=== PATIENT | female | born 1940 | race Caucasian/White ===

== ENCOUNTER 2019-12-05 15:23 | Inpatient (IN) | payer OTHER ==
[2019-12-05] MEDS ORDERED: FENTANYL CITR 100 MCG/2 ML ONE (17:34)
[2019-12-05 17:41] LABS: Basophils % 0.8 % (0-1.3); Hematocrit 38.7 % (36.0-45.0); Lymphocytes % 20.4 % (15.3-44.8); MPV 9.5 fL (7.6-11.3); RBC Red Blood Cell Count 4.45 M/uL (3.86-4.86)
[2019-12-05 17:49] LABS: Protime INR 0.99
[2019-12-05 17:56] LABS: Potassium 3.5 mmol/L (3.5-5.1)
--- NOTE | 2019-12-05 18:15 | EDPHYS ---
Physician Documentation [facility] Name: Denisse Cook Age: 79 yrs Sex: Female : 1940 Arrival Date: 12/05/2019 Time: 15:30 Bed 17 Private MD: ED Physician Elgin Hamilton HPI: 12/04 15:40 This 79 yrs old Female presents to ER via EMS with complaints of Fall. cp 15:40 Details of fall: The patient fell from an upright position, while standing, and struck cp a tile surface. 15:40 Onset: The symptoms/episode began/occurred 3 day(s) ago. Associated injuries: The cp patient sustained injury to the low back, pain, right hip, painful injury. Historical: - Allergies: 15:44 No Known Allergies; ca1 - Home Meds: 15:44 Amitriptyline Oral [Active]; Metformin Oral [Active]; gabapentin oral oral [Active]; ca1 Lisinopril Oral [Active]; amlodipine oral [Active]; Metoprolol Tartrate Oral [Active]; venlafaxine oral oral [Active]; - PMHx: 15:44 Diabetes - NIDDM; Hypertension; ca1 - PSHx: 15:44 None; ca1 - Immunization history:: Adult Immunizations up to date. - Social history:: Smoking status: Patient denies any tobacco usage or history of. ROS: 15:45 MS/extremity: Positive for pain, tenderness, of the right hip. cp 15:45 Eyes: Negative for injury, pain, redness, and discharge. cp 15:45 Constitutional: Negative for body aches, chills, fever. 15:45 Neck: Negative for pain with movement, pain at rest, stiffness. 15:45 Cardiovascular: Negative for chest pain, palpitations. 15:45 Respiratory: Negative for cough, shortness of breath, wheezing. 15:45 Abdomen/GI: Negative for abdominal pain, nausea, vomiting, and diarrhea, bowel incontinence. 15:45 Back: Positive for pain at rest, pain with movement, of the lumbar area and right low back. 15:45 Neuro: Negative for altered mental status, headache, loss of consciousness, weakness. 15:45 All other systems are negative. Exam: 15:50 Constitutional: The patient appears in no acute distress, alert, awake, cp non-diaphoretic, non-toxic, well developed, well nourished. 15:50 Head/Face: Normocephalic, atraumatic. cp 15:50 Eyes: Periorbital structures: appear normal, Conjunctiva: normal, no exudate, no injection, Lids and lashes: appear normal, bilaterally. 15:50 ENT: External ear(s): are unremarkable, Nose: is normal, Mouth: Lips: moist, Oral mucosa: pink and intact, moist, Posterior pharynx: is normal, airway is patent, no erythema, no exudate. 15:50 Neck: C-spine: vertebral tenderness, is not appreciated, crepitus, is not appreciated, ROM/movement: is normal, is supple, without pain, no range of motions limitations. 15:50 Chest/axilla: Inspection: normal, Palpation: is normal, no crepitus, no tenderness. 15:50 Cardiovascular: Rate: normal, Rhythm: regular, Edema: ankle edema, that is mild, JVD: is not appreciated. 15:50 Respiratory: the patient does not display signs of respiratory distress, Respirations: normal, no use of accessory muscles, no retractions, labored breathing, is not present, Breath sounds: are clear throughout, no decreased breath sounds, no stridor, no wheezing. 15:50 Abdomen/GI: Inspection: abdomen appears normal, Bowel sounds: active, all quadrants, Palpation: abdomen is soft and non-tender, in all quadrants. 15:50 Back: pain, that is moderate, of the lumbar area and right low back, ROM is painful, with all movement, Straight leg raises: right lower extremity illicits pain. 15:50 Musculoskeletal/extremity: Pulses: noted to be 2+ in the right dorsalis pedis artery and left dorsalis pedis artery, Joints: All joints are normal except the right hip displays painful range of motion. 15:50 Skin: no rash present. 15:50 Neuro: Orientation: to person, place \T\ time. Mentation: is normal, Motor: moves all fours, strength is normal. 17:45 ECG was reviewed by the Attending Physician. cp Vital Signs: 15:31 BP 116 / 77; Pulse 95; Resp 18; Temp 98.1; Pulse Ox 94% on R/A; Weight 73.03 kg; Height dh4 5 ft. 3 in. (160.02 cm); 16:36 BP 109 / 82; Pulse 90; Resp 15 S; Pulse Ox 96% on R/A; ca1 17:30 BP 140 / 88; Pulse 87; Resp 15 S; Pulse Ox 92% on R/A; ca1 18:32 BP 130 / 79; Pulse 86; Resp 15 S; Pulse Ox 96% on R/A; ca1 20:37 BP 118 / 63; Pulse 73; Resp 18; Temp 98; Pulse Ox 96% on R/A; mg2 15:31 Body Mass Index 28.52 (73.03 kg, 160.02 cm) 4 MDM: 15:34 Patient medically screened. cp 18:12 Physician consultation: Darius Coronado MD was called at 18:12, was contacted at 18:12, regarding admission, to the medical/surgical unit. patient's condition. 18:15 Data reviewed: vital signs, nurses notes, lab test result(s), radiologic studies, plain cp films. 18:15 Test interpretation: by ED physician or midlevel provider: xrays of pelvis show right cp superior and inferior rami fractures, xrays of right hip negative for fracture. Counseling: I had a detailed discussion with the patient and/or guardian regarding: the historical points, exam findings, and any diagnostic results supporting the discharge/admit diagnosis, radiology results, the need for further work-up and treatment in the hospital. 12/04 16:53 Order name: CBC with Diff; Complete Time: 18:11 cp 12/04 16:53 Order name: BMP; Complete Time: 18:11 cp 12/04 18:11 Interpretation: Normal except: GLUC 193; BUN 19; GFR 86. cp 12/04 16:53 Order name: PT-INR; Complete Time: 18:11 cp 12/04 16:53 Order name: Ptt, Activated; Complete Time: 18:11 cp 12/04 16:53 Order name: Urine Microscopic Only; Complete Time: 19:10 cp 12/04 19:10 Interpretation: Normal except: UWBC 10-20; UBACT 20-50. cp 12/04 18:18 Order name: Urine Culture EDMS 12/04 15:33 Order name: XRAY Pelvis; Complete Time: 20:42 cp 12/04 15:33 Order name: XRAY Femur RIGHT; Complete Time: 20:42 cp 12/04 15:33 Order name: XRAY Lumbar Spine (3 Views); Complete Time: 20:42 cp 12/04 17:26 Order name: CT Lumbar Spine Wo Con cp 12/04 17:26 Order name: CT Pelvis wo Cont cp 12/04 19:21 Order name: Urine Dipstick--Ancillary (enter results) aa5 12/04 19:22 Order name: CT; Complete Time: 20:42 EDMS 12/04 21:04 Order name: Urine Dipstick-Ancillary EDTN 12/04 16:53 Order name: IV; Complete Time: 17:31 cp 12/04 16:53 Order name: EKG; Complete Time: 16:54 cp 12/04 16:53 Order name: EKG - Nurse/Tech; Complete Time: 17:44 cp 12/04 16:53 Order name: Urine Dipstick-Ancillary (obtain specimen); Complete Time: 18:01 cp 12/04 19:27 Order name: CT; Complete Time: 20:42 EDMS EC:45 Rate is 81 beats/min. Rhythm is regular. GA interval is normal. QRS interval is normal. cp QT interval is normal. T waves are Inverted in lead aVR. Interpreted by me. Reviewed by me. Administered Medications: 17:31 Drug: fentaNYL (PF) 25 mcg {Note: rass 0.} Route: IVP; Site: left antecubital; ca1 19:20 Follow up: Response: No adverse reaction; Marked relief of symptoms; RASS: Alert and mg2 Calm (0) Disposition: 12/05 16:53 Co-signature as Attending Physician, Elgin Hamilton MD I agree with the assessment and [facility] plan of care. Disposition: 12/05/19 18:13 Hospitalization ordered by Darius Coronado for Inpatient Admission. Preliminary diagnosis are Multiple fractures of pelvis with disruption of pelvic ring, Fall on same level from slipping, tripping and stumbling. - Bed requested for Telemetry/MedSurg (Inpatient). - Status is Inpatient Admission. mg2 - Condition is Stable. - Problem is new. - Symptoms have improved. Signatures: Dispatcher [employer] EDTN Elgin Hamilton MD MD cha Page, Corey, PA PA Keke Martinez RN RN Sae Hayes RN RN mg2 Lissy Avelar RN RN ca1 Corrections: (The following items were deleted from the chart) 12/04 18:14 18:13 Hospitalization Ordered by Darius Coronado MD for Inpatient Admission. Preliminary cp diagnosis is Multiple fractures of pelvis with disruption of pelvic ring. Bed requested for Telemetry/MedSurg (Inpatient). Status is Inpatient Admission. Condition is Stable. Problem is new. Symptoms have improved. cp 20:26 18:14 12/05/2019 18:13 Hospitalization Ordered by Darius Coronado MD for Inpatient cg Admission. Preliminary diagnosis is Multiple fractures of pelvis with disruption of pelvic ring; Fall on same level from slipping, tripping and stumbling. Bed requested for Telemetry/MedSurg (Inpatient). Status is Inpatient Admission. Condition is Stable. Problem is new. Symptoms have improved. cp 21:28 20:26 12/05/2019 18:13 Hospitalization Ordered by Darius Coronado MD for Inpatient mg2 Admission. Preliminary diagnosis is Multiple fractures of pelvis with disruption of pelvic ring; Fall on same level from slipping, tripping and stumbling. Bed requested for Telemetry/MedSurg (Inpatient). Status is Inpatient Admission. Condition is Stable. Problem is new. Symptoms have improved. cg
--- NOTE | 2019-12-05 18:15 | ER ---
Nurse's Notes [facility] Name: Denisse Cook Age: 79 yrs Sex: Female : 1940 Arrival Date: 12/05/2019 Time: 15:30 Bed 17 Private MD: Diagnosis: Multiple fractures of pelvis with disruption of pelvic ring;Fall on same level from slipping, tripping and stumbling Presentation: 12/04 15:30 Chief complaint: EMS states: Pt fell from standing Saturday. Lost her balance and fell ca1 backwards. After the fall, she has been walking around with a walker but since last night she couldn't walk anymore even with a walker. Before the fall, she ambulates on her own without a walker. VS stable. Complaints R hip and low back pain with movement but is not complaining of any pain at this time. Coronavirus screen: Proceed with normal triage. Patient denies a cough. Patient denies shortness of breath or difficulty breathing. Patient denies measured and/or subjective temperature greater than 100.4F prior to today's visit. Patient denies travel on a cruise ship or to a country the [facility] currently lists as an affected area. Patient denies contact with known and/or suspected case of COVID-19. Ebola Screen: Patient negative for fever greater than or equal to 101.5 degrees Fahrenheit, and additional compatible Ebola Virus Disease symptoms Patient denies exposure to infectious person. Patient denies travel to an Ebola-affected area in the 21 days before illness onset. No symptoms or risks identified at this time. Initial Sepsis Screen: Does the patient meet any 2 criteria? No. Patient's initial sepsis screen is negative. Does the patient have a suspected source of infection? No. Patient's initial sepsis screen is negative. Risk Assessment: Do you want to hurt yourself or someone else? Patient reports no desire to harm self or others. Onset of symptoms was December 05, 2019. 15:30 Method Of Arrival: EMS: [facility] ca1 15:30 Acuity: RYAN 4 ca1 17:30 Acuity: RYAN 3 ca1 Triage Assessment: 15:44 General: Appears in no apparent distress. comfortable, Behavior is calm, cooperative, ca1 appropriate for age. Pain: Complains of pain in low back area, R hip Pain does not radiate. Pain currently is 0 out of 10 on a pain scale. Pain began 2-3 days ago. EENT: No signs and/or symptoms were reported regarding the EENT system. Neuro: Level of Consciousness is awake, alert, obeys commands, Oriented to person, place, time, situation. Cardiovascular: Heart tones S1 S2 present Capillary refill < 3 seconds Patient's skin is warm and dry. Respiratory: Airway is patent Respiratory effort is even, unlabored, Respiratory pattern is regular, symmetrical, Breath sounds are clear bilaterally. GI: Abdomen is round non-distended, Bowel sounds present X 4 quads. Abd is soft and non tender X 4 quads. : No signs and/or symptoms were reported regarding the genitourinary system. Derm: Skin is intact, is healthy with good turgor, Skin is pink, warm \T\ dry. Musculoskeletal: Circulation, motion, and sensation intact. Capillary refill < 3 seconds, Range of motion: limited in right hip. Historical: - Allergies: 15:44 No Known Allergies; ca1 - Home Meds: 15:44 Amitriptyline Oral [Active]; Metformin Oral [Active]; gabapentin oral oral [Active]; ca1 Lisinopril Oral [Active]; amlodipine oral [Active]; Metoprolol Tartrate Oral [Active]; venlafaxine oral oral [Active]; - PMHx: 15:44 Diabetes - NIDDM; Hypertension; ca1 - PSHx: 15:44 None; ca1 - Immunization history:: Adult Immunizations up to date. - Social history:: Smoking status: Patient denies any tobacco usage or history of. Screenin:46 Abuse screen: Denies threats or abuse. Denies injuries from another. Nutritional ca1 screening: No deficits noted. Tuberculosis screening: No symptoms or risk factors identified. Fall Risk Fall in past 12 months (25 points). Ambulatory Aid- Crutches/Cane/Walker (15 pts). Gait- Impaired (20 pts.). Total Grover Fall Scale indicates High Risk Score (45 or more points). Fall prevention measures have been instituted. Side Rails Up X 2 Family Present and informed to notify staff if the need to leave the bedside As available patient and family educated on Fall Prevention Program and Strategies. Assessment: 15:46 Reassessment: see triage assessment. ca1 16:36 Reassessment: Patient appears in no apparent distress at this time. Patient and/or ca1 family updated on plan of care and expected duration. Pain level reassessed. Patient is alert, oriented x 3, equal unlabored respirations, skin warm/dry/pink. 17:30 Reassessment: Patient appears in no apparent distress at this time. Patient and/or ca1 family updated on plan of care and expected duration. Pain level reassessed. Patient is alert, oriented x 3, equal unlabored respirations, skin warm/dry/pink. 18:32 Reassessment: Patient appears in no apparent distress at this time. Patient and/or ca1 family updated on plan of care and expected duration. Pain level reassessed. Patient is alert, oriented x 3, equal unlabored respirations, skin warm/dry/pink. Vital Signs: 15:31 BP 116 / 77; Pulse 95; Resp 18; Temp 98.1; Pulse Ox 94% on R/A; Weight 73.03 kg; Height dh4 5 ft. 3 in. (160.02 cm); 16:36 BP 109 / 82; Pulse 90; Resp 15 S; Pulse Ox 96% on R/A; ca1 17:30 BP 140 / 88; Pulse 87; Resp 15 S; Pulse Ox 92% on R/A; ca1 18:32 BP 130 / 79; Pulse 86; Resp 15 S; Pulse Ox 96% on R/A; ca1 20:37 BP 118 / 63; Pulse 73; Resp 18; Temp 98; Pulse Ox 96% on R/A; mg2 15:31 Body Mass Index 28.52 (73.03 kg, 160.02 cm) 4 ED Course: 15:30 Patient arrived in ED. ca1 15:32 Elgin Cedeno PA is PHCP. cp 15:32 Elgin Hamilton MD is Attending Physician. cp 15:36 Lissy Avelar, GALLITO is Primary Nurse. ca1 15:41 Triage completed. ca1 15:44 Arm band placed on right wrist. ca1 15:46 Patient has correct armband on for positive identification. Placed in gown. Bed in low ca1 position. Call light in reach. Side rails up X2. Pulse ox on. NIBP on. Warm blanket given. 17:19 XRAY Pelvis In Process Unspecified. EDMS 17:19 XRAY Femur RIGHT In Process Unspecified. EDMS 17:19 XRAY Lumbar Spine (3 Views) In Process Unspecified. EDMS 17:20 Missed attempt(s): 22 gauge in right forearm. Bleeding controlled, band aid applied, ca1 catheter tip intact. 17:30 Initial lab(s) drawn, by me, sent to lab. Inserted saline lock: 22 gauge in left ca1 antecubital area, using aseptic technique. Blood collected. 18:13 Darius Coronado MD is Hospitalizing Provider. cp 19:10 Report given to GALLITO Scott. ca1 20:43 No provider procedures requiring assistance completed. Patient admitted, IV remains in mg2 place. Administered Medications: 17:31 Drug: fentaNYL (PF) 25 mcg {Note: rass 0.} Route: IVP; Site: left antecubital; ca1 19:20 Follow up: Response: No adverse reaction; Marked relief of symptoms; RASS: Alert and mg2 Calm (0) Outcome: 18:13 Decision to Hospitalize by Provider. cp 21:28 Admitted to Med/surg accompanied by tech, via stretcher, room 210, with chart, Report mg2 called to GALLITO Taylor 21:28 Condition: stable 21:28 Instructed on the need for admit, Demonstrated understanding of instructions. 21:28 Patient left the ED. mg2 Signatures: Dispatcher [employer] EDHI Elgin Cedeno PA PA cp Sae Hayes RN RN mg2 Lissy Avelar RN RN ca1 Trevor Soto [facility]
[2019-12-05 18:16] LABS: Urine Bacteria 20-50 /HPF (<20); Urine Culture Reflex Order REFLEXED; Urine RBC <5 /HPF (NONE SEEN)
--- NOTE | 2019-12-05 19:20 | RAD REPORT ---
EXAM DESCRIPTION: CTSpine Lumbar Wo Con12/05/2019 7:04 pm CLINICAL HISTORY: Right leg radiculopathy/fall COMPARISON: X-ray December 05, 2019 TECHNIQUE: Computed axial tomography lumbar spine was obtained with coronal and sagittal reconstruct ion. All CT scans are performed using dose optimization technique as appropriate and may include automated exposure control or mA/KV adjustment according to patient size. FINDINGS: Minimally displaced fracture right inferior sacral ala. No lumbar fracture noted No dislocation Mild scoliosis Mild spondylosis involves the lumbar spine. Possible small right paracentral disc herniation L5-S1 Osteoporosis IMPRESSION: Minimally displaced fracture right inferior sacral ala
--- NOTE | 2019-12-05 19:27 | RAD REPORT ---
EXAM DESCRIPTION: RAD - Pelvis - 12/05/2019 5:18 pm CLINICAL HISTORY: Pelvic pain status post injury FINDINGS: A moderately displaced comminuted fracture right inferior pubic ramus Mildly displaced fractures involve the right superior pubic ramus. Minimally displaced fracture involves the right sacral alae No dislocation Osteoporosis
--- NOTE | 2019-12-05 19:27 | RAD REPORT ---
EXAM DESCRIPTION: CT - Pelvis Wo Cont - 12/05/2019 7:04 pm CLINICAL HISTORY: Pelvic pain status post fall COMPARISON: None. TECHNIQUE: Computed axial tomography of the pelvis was obtained. Coronal and sagittal reconstruction performed All CT scans are performed using dose optimization technique as appropriate and may include automated exposure control or mA/KV adjustment according to patient size. FINDINGS: Comminuted mildly to moderately displaced fracture right inferior pubic ramus Mildly displaced fractures right superior pubic ramus Minimally displaced fracture right inferior sacral ala No dislocation 3.1 centimeter complex cystic structure left adnexal IMPRESSION: Comminuted mildly to moderately displaced fracture right inferior pubic ramus Mildly displaced fractures right superior pubic ramus Minimally displaced fracture right inferior sacral ala 3.1 centimeter complex cystic structure left adnexa. It is recommended that patient have a followup p elvic ultrasound in 3 months to assess stability
--- NOTE | 2019-12-05 19:27 | RAD REPORT ---
EXAM DESCRIPTION: RAD - Lumbar Spine 3 Views - 12/05/2019 5:18 pm CLINICAL HISTORY: Back pain FINDINGS: The bones are osteoporotic. Mild scoliosis No fracture or dislocation involving lumbar spine is seen
--- NOTE | 2019-12-05 19:29 | RAD REPORT ---
EXAM DESCRIPTION: RAD - Femur Right - 12/05/2019 5:18 pm CLINICAL HISTORY: Right leg pain FINDINGS: No fracture involving the right femur noted. Osteoporosis
[2019-12-05 21:04] LABS: Urine Blood NEGATIVE (NEG); Urine Glucose 2+ (NEG); Urine Protein NEGATIVE (NEG); Urine Specific Gravity 1.025 (1.005-1.030); Urine pH 5.5 (5.0-7.0)
[2019-12-05] MEDS: INSULIN -REGULAR HUMAN 50 UNIT/0.5 ML ML SQ SCH (21:40)
[2019-12-05] MEDS ORDERED: NA CHLORIDE 0.9% 1,000 ML IV SCH (21:40)
[2019-12-05] MEDS ORDERED: MORPHINE 2 MG/ML SYR IV PRN (21:40)
[2019-12-05] MEDS ORDERED: ACETAMINOPHEN 500 MG TAB PO PRN (21:40)
[2019-12-05] MEDS ORDERED: ONDANSETRON 4 MG/2 ML VIAL IV PRN (21:40)
[2019-12-05 21:44] VITALS: BMI 26.5
--- NOTE | 2019-12-05 21:45 | P.HP ---
Certification for Inpatient Patient admitted to: Inpatient With expected LOS: >2 Midnights Practitioner: I am a practitioner with admitting privileges, knowledge of patient current condition, hospital course, and medical plan of care. Services: Services provided to patient in accordance with Admission requirements found in Title 42 Section 412.3 of the Code of Federal Regulations Patient History Date of Service: 12/05/19 Reason for admission: Fall, pelvic fracture. History of Present Illness: 79-year-old woman with a history hypertension, diabetes presented to the ED after a fall at home. Patient reports she fell while trying to kill a castillo. She developed pain with ambulation. Images done in the ED report multiple right-sided pelvic fractures. Patient unable to ambulate at this time due to uncontrolled pain. Orthopedic surgeon has been informed. The patient is added for further management. Allergies No Known Allergies Allergy (Unverified 12/05/19 20:36) - Past Medical/Surgical History -: Hypertension -: Diabetes - Family History Mother -: Diabetes - Social History Smoking Status: Never smoker Alcohol use: No CD- Drugs: No Place of Residence: Home Review of Systems Other: Except as documented, all other systems reviewed and negative. Physical Examination - Physical Exam General: Alert, In no apparent distress, Oriented x3 HEENT: Atraumatic, PERRLA, Mucous membr. moist/pink, Sclerae nonicteric Neck: Supple, JVD not distended Respiratory: Clear to auscultation bilaterally, Normal air movement Cardiovascular: No edema, Regular rate/rhythm, Normal S1 S2 Capillary refill: <2 Seconds Gastrointestinal: Normal bowel sounds, Soft and benign, Non-distended, No tenderness Musculoskeletal: No swelling, No erythema Integumentary: No rashes Neurological: Normal speech, Other (Nonfocal) - Studies Laboratory Data (last 24 hrs) 12/05/19 17:23: PT 11.7, INR 0.99, APTT 27.3 12/05/19 17:23: Sodium 138, Potassium 3.5, BUN 19 H, Creatinine 0.66, Glucose 193 H 12/05/19 17:23: WBC 9.6, Hgb 12.8, Hct 38.7, Plt Count 217 Assessment and Plan - Problems (Diagnosis) (1) Pelvic fracture Current Visit: Yes Status: Acute (2) Hypertension Current Visit: Yes Status: Acute (3) Diabetes mellitus type 2 in obese Current Visit: Yes Status: Acute - Plan Admit to the medical floor. Supportive measures. Pain management with IV opioid Consult orthopedic surgeon Insulin sliding scale for glucose management. Hold metformin. Continue home antihypertensives. - Advance Directives Does patient have a Living Will: No Does patient have a Durable POA for Healthcare: No
[2019-12-05] MEDS ORDERED: POTASSIUM CL SA 10 MEQ TAB PO ONE (23:31)
[2019-12-06 05:51] LABS: Absolute Lymphocytes (CBC) 2.2 K/uL (0.7-4.9); Basophils % 0.8 % (0-1.3); Hematocrit 35.1 % (36.0-45.0); Lymphocytes % 28.5 % (15.3-44.8); MPV 9.2 fL (7.6-11.3); RBC Red Blood Cell Count 4.11 M/uL (3.86-4.86)
[2019-12-06 06:11] LABS: ALT/SGPT 25 U/L (12-78); AST/SGOT 23 U/L (15-37); Albumin 3.4 g/dL (3.4-5.0); Alkaline Phosphatase 70 U/L (45-117); BUN Blood Urea Nitrogen 13 mg/dL (7-18); Bicarbonate 28 mmol/L (21-32); Bilirubin Total 0.8 mg/dL (0.2-1.0); Glucose Level 179 mg/dL (74-106); Magnesium 2.2 mg/dL (1.8-2.4); Potassium 3.8 mmol/L (3.5-5.1); Protein, Total 6.6 g/dL (6.4-8.2); Sodium Level 141 mmol/L (136-145)
[2019-12-06] MEDS: INSULIN -REGULAR HUMAN 50 UNIT/0.5 ML ML SQ SCH ×4 (07:30→20:57)
[2019-12-06] MEDS: ENOXAPARIN 40 MG/0.4 ML SQ SCH (08:57)
[2019-12-06] MEDS: AMLODIPINE 10 MG TAB PO SCH (08:58)
[2019-12-06] MEDS: lisinopriL 20 MG TAB PO SCH (08:58)
[2019-12-06] MEDS: METOPROLOL TAR 25 MG TAB PO SCH (08:58)
[2019-12-06] MEDS ORDERED: HOME MED 1 EA UNK (Venlafaxine Hcl [Venlafaxine Hcl Er] 1 TAB) PO SCH (09:00)
[2019-12-06] MEDS ORDERED: POTASSIUM CL SA 10 MEQ TAB PO ONE (09:00)
[2019-12-06] MEDS: HYDROCODONE/APAP 7.5/325 MG TAB PO PRN ×2 (09:07→20:55)
[2019-12-06] MEDS: CEFTRIAXONE/SWI 1gm 1 GM/10 ML SYR IVP SCH (11:04)
--- NOTE | 2019-12-06 12:17 | PN ---
Date of Progress Note: 12/06/2019 Subjective: Patient was seen and examined. Chart was reviewed and case discussed with RN and Dr. Wu mosqueda. Treatment plan explained to daughter at the bedside. Patient's pain is controlled with med ications at this time. Still having difficulty moving around. Medications: List reviewed. Code Status: Full. Physical Examination: Vital Signs: Temperature 96.9, heart rate 92, blood pressure 166/77, respirations 16, O2 of 93% on r oom air. General: Awake, alert, oriented x3. Elderly female, in some mild distress due to pain. CV: S1, S2. Regular rate and rhythm. Peripheral pulses present. Respiratory: Moving air well bilaterally. No wheezing or stridor. No use of accessory muscles. Gastrointestinal: Abdomen is soft, nontender, nondistended. Positive bowel sounds. No guarding or rigidity. Extremities: No clubbing, cyanosis, or edema. Musculoskeletal: Decreased range of motion of the hip and pelvis due to pain. Neuro: Cranial nerves 2 through 12 intact grossly. No focal neurological deficit. Speech is normal . Strength is symmetric. Laboratory Data: Sodium 141, potassium 3.8, chloride 107, CO2 of 28, BUN 13, creatinine 0.59, glucos e 179, calcium 8.5, magnesium 2.2. WBC 7.6, H and H 11.9 and 35.1, platelets 193. Assessment And Plan: 79-year-old female with: 1.Pelvic fracture. CT shows fracture of the inferior and superior pubic rami, right inferior pubic ramus and mildly displaced fracture of the right superior pubic ramus as well as the right inferior s acral ala. I spoke with Dr. Santillan. He recommends nonoperative management. We will start on butch p vein thrombosis prophylaxis. PT/OT eval. We will refer to inpatient rehab versus SNF. At this ti me, patient is in a significant amount of pain, unable to even get up in bed, sit up in bed. 2.3.1 cm complex cyst on the left adnexa. Patient will need to have repeat ultrasound in 3 months t o assess stability. 3.Essential hypertension, stable. We will continue home medications as appropriate. 4.Diabetes mellitus type 2, non-insulin requiring. We will continue with sliding scale insulin and monitor blood glucose levels. 5.Deep vein thrombosis prophylaxis. Lovenox. Plan, we will start on diet. Patient is nonoperative. Disposition: Inpatient rehab versus SNF. SA/MODL Voice ID: [id number] Report ID: [id number]
[2019-12-06] MEDS: GABAPENTIN 300 MG CAP PO SCH (20:55)
[2019-12-06] MEDS: AMITRIPTYLINE 25 MG TAB PO SCH (20:55)
--- NOTE | 2019-12-06 21:33 | CON ---
Date of Consultation: 12/06/2019 History Of Present Illness: This is my first time seeing this patient to my knowledge. She is an 79 -year-old female who apparently fell on Saturday. She had great difficulty with ambulation, however , was able to do so until recently where she says that her pain was increasing rather than decreasing . She went to the emergency department where she had x-rays and CT scan which demonstrated a superio r and inferior pubic rami fracture as well as fracture of the sacrum, did not appear to have any hip fracture and called about her and discussed with the ER physician that perhaps this is best treated a s an outpatient with pain control and protected weightbearing. After this was discussed, the ER phys ician admits her to the hospital under the care of the hospitalist for pain control apparently or per haps instruction and weightbearing, I see her today. Physical Examination: All of her long bones and joints are palpated without pain or crepitation exception of her right hip. She has discomfort with movement or manipulation of her right lower extremity. There is no effusio n of either knee. Diagnostic Data: Review of her CT scan demonstrates a comminuted to mildly displaced inferior ramus fracture, superior rami fracture, as well as an inferior sacral ala fracture. At this time, I believe these are consistent with fragility fractures after a fall. I think she can be weightbearing as tolerated using a walker prior to Physical Therapy can help with this. Otherwise , do not see any operative intervention. She was told that she may have considerable pain for 2 week s and may need medication for pain control. After this, it continued to hurt and hopefully by 6 week s will resolve. She knows she can follow up with me in my office with any problems or questions, however, did not see any indications for operative intervention. /GI Voice ID: [id number] Report ID: [id number]
[2019-12-07 05:32] LABS: BUN Blood Urea Nitrogen 13 mg/dL (7-18); Bicarbonate 30 mmol/L (21-32); Glucose Level 169 mg/dL (74-106); Potassium 3.7 mmol/L (3.5-5.1); Sodium Level 140 mmol/L (136-145)
[2019-12-07] MEDS: HYDROCODONE/APAP 7.5/325 MG TAB PO PRN ×3 (06:55→21:36)
[2019-12-07] MEDS: INSULIN -REGULAR HUMAN 50 UNIT/0.5 ML ML SQ SCH ×4 (07:30→21:36)
[2019-12-07] MEDS ORDERED: POTASSIUM CL SA 10 MEQ TAB PO ONE (08:00)
[2019-12-07] MEDS: AMLODIPINE 10 MG TAB PO SCH (08:46)
[2019-12-07] MEDS: DOCUSATE NA 100 MG CAP PO SCH (08:46)
[2019-12-07] MEDS: METOPROLOL TAR 25 MG TAB PO SCH (08:47)
[2019-12-07] MEDS: CEFTRIAXONE/SWI 1gm 1 GM/10 ML SYR IVP SCH (08:47)
[2019-12-07] MEDS: lisinopriL 20 MG TAB PO SCH (08:47)
[2019-12-07] MEDS: ENOXAPARIN 40 MG/0.4 ML SQ SCH (08:47)
[2019-12-07] MEDS: VENLAFAXINE 75 MG PO SCH (08:48)
--- NOTE | 2019-12-07 11:20 | P.PN ---
Subjective Date of Service: 12/07/19 Primary Care Provider: Dr. Barahona Chief Complaint: Fall, pelvic fracture. Subjective: Improving, Doing well, Other (Pain seems to be well controlled.) Physical Examination - Vital Signs Temperature: 97.8 F Blood Pressure: 121/73 Pulse: 99 Respirations: 20 Pulse Ox (%): 95 - Physical Exam General: Alert, Cooperative HEENT: Atraumatic Neck: Supple Respiratory: Clear to auscultation bilaterally, Normal air movement Cardiovascular: Normal pulses, Regular rate/rhythm Gastrointestinal: Normal bowel sounds, Soft and benign, Non-distended Neurological: Normal speech, Normal strength at 5/5 x4 extr, Normal tone, Normal affect - Studies Medications List Reviewed: Yes Assessment & Plan Discharge Plan: Other (Inpatient rehab versus home with home health/PT) Plan to discharge in: 48 Hours Physician Review Additional Text: Impression: Pelvic fractures-inferior/superior pubic rami, right inferior pubic rami, mildly displaced fracture of the right superior pubic rami and right inferior sacral ala 3.1 cm complex cyst to the left adnexa Hypertension Diabetes mellitus type 2 [id number]-[id number] Plan: Pelvic fractures-inferior/superior pubic rami, right inferior pubic rami, mildly displaced fracture of the right superior pubic rami and right inferior sacral ala: Continue with physical therapy. Case was discussed with orthopedics yesterday by hospitalist. Non operative management is recommended. Continue DVT prophylaxis. Await physical therapy/occupational therapy evaluation. Advanced care planning address in detail. Patient prefers inpatient rehab. If denied patient prefers to go home with home health and physical therapy. Will discuss with socially responsible investment adviser. Advanced care planning-15 min 3.1 cm complex cyst to the left adnexa: Recommend repeat ultrasound in 3 months to monitor stability. Recommend gynecology evaluation in the future. Hypertension: Continue medication. Will monitor and adjust appropriately. Diabetes mellitus type 2 [id number]: Continue with Accu-Cheks. Monitor sliding scale. Time Spent Managing Pts Care (In Minutes): 55
[2019-12-07] MEDS: AMITRIPTYLINE 25 MG TAB PO SCH (21:35)
[2019-12-07] MEDS: GABAPENTIN 300 MG CAP PO SCH (21:35)
[2019-12-08] MEDS: HYDROCODONE/APAP 7.5/325 MG TAB PO PRN ×3 (03:10→21:47)
[2019-12-08 04:30] LABS: BUN Blood Urea Nitrogen 15 mg/dL (7-18); Bicarbonate 31 mmol/L (21-32); Glucose Level 171 mg/dL (74-106); Sodium Level 137 mmol/L (136-145)
[2019-12-08] MEDS: INSULIN -REGULAR HUMAN 50 UNIT/0.5 ML ML SQ SCH ×4 (07:30→21:00)
[2019-12-08] MEDS: DOCUSATE NA 100 MG CAP PO SCH (07:38)
[2019-12-08] MEDS: lisinopriL 20 MG TAB PO SCH (07:38)
[2019-12-08] MEDS: ENOXAPARIN 40 MG/0.4 ML SQ SCH (07:38)
[2019-12-08] MEDS: AMLODIPINE 10 MG TAB PO SCH (07:38)
[2019-12-08] MEDS: METOPROLOL TAR 25 MG TAB PO SCH (07:39)
[2019-12-08] MEDS: VENLAFAXINE 75 MG PO SCH (07:41)
--- NOTE | 2019-12-08 13:47 | P.PN ---
Subjective Date of Service: 12/08/19 Primary Care Provider: Dr. Barahona Chief Complaint: Fall, pelvic fracture. Subjective: No new changes, Improving, Working w/ PT <Sunny Berman - Last Filed: 12/08/19 13:44> Date of Service: 12/08/19 <Sanchez Mccabe - Last Filed: 12/08/19 16:07> Review of Systems General: Unremarkable Eyes: Unremarkable ENT: Unremarkable Respiratory: Unremarkable Cardiovascular: Unremarkable Gastrointestinal: Unremarkable Genitourinary: Unremarkable Musculoskeletal: As per HPI Integumentary: Unremarkable Neurological: Unremarkable Lymphatics: Unremarkable <Sunny Berman - Last Filed: 12/08/19 13:44> Physical Examination - Vital Signs Temperature: 97.0 F Blood Pressure: 110/59 Pulse: 83 Respirations: 19 Pulse Ox (%): 94 - Physical Exam General: Alert, In no apparent distress HEENT: Atraumatic, Normocephalic Neck: Supple Respiratory: Normal air movement Cardiovascular: Normal S1 S2 Capillary refill: <2 Seconds Gastrointestinal: Non-distended Musculoskeletal: No erythema Integumentary: No significant lesion Neurological: Normal speech - Studies Microbiology Data (last 24 hrs): 12/05/19 17:57 Clean Catch Urine [place] Count - Final >100,000 CFU/ML. 12/05/19 17:57 Clean Catch Urine - Final MIXED [place]. Medications List Reviewed: Yes <Sunny Berman - Last Filed: 12/08/19 13:44> - Studies Microbiology Data (last 24 hrs): 12/05/19 17:57 Clean Catch Urine [place] Count - Final >100,000 CFU/ML. 12/05/19 17:57 Clean Catch Urine - Final MIXED [place]. <Sanchez Mccabe - Last Filed: 12/08/19 16:07> Assessment & Plan Discharge Plan: Home Plan to discharge in: 48 Hours - Code Status/Comfort Care Code Status Assessed: Yes Physician Review Additional Text: Impression: Pelvic fractures-inferior/superior pubic rami, right inferior pubic rami, mildly displaced fracture of the right superior pubic rami and right inferior sacral ala 3.1 cm complex cyst to the left adnexa Hypertension Diabetes mellitus type 2 [id number]-baflumldj Plan: Pelvic fractures-inferior/superior pubic rami, right inferior pubic rami, mildly displaced fracture of the right superior pubic rami and right inferior sacral ala: Continue with physical therapy. Case was discussed with orthopedics. Non operative management is recommended. Continue DVT prophylaxis. Await physical therapy/occupational therapy evaluation. Advanced care planning address in detail. It is been determined that patient will benefit with home health and physical therapy. The patient is working well with physical therapy, anticipate patient can be discharged in the next 24-48 hr with home health and physical therapy. Will await further recommendations from physical therapy and occupational therapy. 3.1 cm complex cyst to the left adnexa: Recommend repeat ultrasound in 3 months to monitor stability. Recommend gynecology evaluation in the future. Hypertension: Continue medication. Will monitor and adjust appropriately. Diabetes mellitus type 2 [id number]-xhjvvjkll: Continue with Accu-Cheks. Monitor sliding scale. Critical Care: No Time Spent Managing Pts Care (In Minutes): 55 <Sunny Berman - Last Filed: 12/08/19 13:44> Physician Review Additional Text: Patient seen and examined. Agree with assessment, evaluation and plan of care with nurse practitioner. Anticipate improvement over the next 24-48 hr. Will discuss with physical therapy. Once physical therapy deems her appropriate for home then will discharge home. Patient denied by inpatient rehab. Patient prefers not to go to a skilled facility. Therefore will look to pursue for home health and physical therapy at discharge. <Sanchez Mccabe - Last Filed: 12/08/19 16:07>
[2019-12-08] MEDS: GABAPENTIN 300 MG CAP PO SCH (21:48)
[2019-12-08] MEDS: AMITRIPTYLINE 25 MG TAB PO SCH (21:48)
[2019-12-09] MEDS: INSULIN -REGULAR HUMAN 50 UNIT/0.5 ML ML SQ SCH ×4 (07:30→20:36)
[2019-12-09] MEDS: METOPROLOL TAR 25 MG TAB PO SCH (09:09)
[2019-12-09] MEDS: DOCUSATE NA 100 MG CAP PO SCH (09:10)
[2019-12-09] MEDS: AMLODIPINE 10 MG TAB PO SCH (09:10)
[2019-12-09] MEDS: lisinopriL 20 MG TAB PO SCH (09:10)
[2019-12-09] MEDS: ENOXAPARIN 40 MG/0.4 ML SQ SCH (09:10)
[2019-12-09] MEDS: VENLAFAXINE 75 MG PO SCH (09:11)
[2019-12-09] MEDS: HYDROCODONE/APAP 7.5/325 MG TAB PO PRN ×2 (09:14→15:51)
--- NOTE | 2019-12-09 14:36 | P.PN ---
Subjective Date of Service: 12/09/19 Primary Care Provider: Dr. Barahona Chief Complaint: Fall, pelvic fracture. Subjective: Improving, Doing well Physical Examination - Vital Signs Temperature: 97.1 F Blood Pressure: 128/63 Pulse: 74 Respirations: 20 Pulse Ox (%): 92 - Physical Exam General: Alert HEENT: Atraumatic Neck: Supple Respiratory: Clear to auscultation bilaterally, Normal air movement Cardiovascular: Normal pulses, Regular rate/rhythm Gastrointestinal: Normal bowel sounds, No masses, No rebound, No guarding Neurological: Normal speech, Normal strength at 5/5 x4 extr, Normal tone, Normal affect - Studies Medications List Reviewed: Yes Assessment & Plan Discharge Plan: Home (Home with home health and physical therapy) Plan to discharge in: 24 Hours Physician Review Additional Text: Impression: Pelvic fractures-inferior/superior pubic rami, right inferior pubic rami, mildly displaced fracture of the right superior pubic rami and right inferior sacral ala 3.1 cm complex cyst to the left adnexa Hypertension Diabetes mellitus type 2 ifi-qpumgsg-uxbzcrpiq Plan: Pelvic fractures-inferior/superior pubic rami, right inferior pubic rami, mildly displaced fracture of the right superior pubic rami and right inferior sacral ala: Continue with physical therapy. Case was discussed with orthopedics. Non operative management is recommended. Continue DVT prophylaxis. Spoke with physical therapy about when the patient will be able to safely go home. They will reassess today. Likely home with home health and physical therapy tomorrow. Will discuss further with social media editor. 3.1 cm complex cyst to the left adnexa: Recommend repeat ultrasound in 3 months to monitor stability. Recommend gynecology evaluation in the future. Hypertension: Continue medication. Will monitor and adjust appropriately. Diabetes mellitus type 2 usc-ifvwukt-imjkyhsns: Continue with Accu-Cheks. Monitor sliding scale. Time Spent Managing Pts Care (In Minutes): 55
[2019-12-09] MEDS: AMITRIPTYLINE 25 MG TAB PO SCH (20:35)
[2019-12-09] MEDS: GABAPENTIN 300 MG CAP PO SCH (20:35)
[2019-12-10] MEDS: HYDROCODONE/APAP 7.5/325 MG TAB PO PRN ×3 (03:10→17:45)
[2019-12-10 05:03] LABS: BUN Blood Urea Nitrogen 18 mg/dL (7-18); Bicarbonate 32 mmol/L (21-32); Glucose Level 179 mg/dL (74-106); Magnesium 2.2 mg/dL (1.8-2.4); Potassium 4.4 mmol/L (3.5-5.1); Sodium Level 138 mmol/L (136-145)
[2019-12-10] MEDS: INSULIN -REGULAR HUMAN 50 UNIT/0.5 ML ML SQ SCH ×4 (07:30→21:00)
[2019-12-10] MEDS: DOCUSATE NA 100 MG CAP PO SCH (09:13)
[2019-12-10] MEDS: lisinopriL 20 MG TAB PO SCH (09:13)
[2019-12-10] MEDS: METOPROLOL TAR 25 MG TAB PO SCH (09:13)
[2019-12-10] MEDS: ENOXAPARIN 40 MG/0.4 ML SQ SCH (09:13)
[2019-12-10] MEDS: AMLODIPINE 10 MG TAB PO SCH (09:13)
[2019-12-10] MEDS: LACTULOSE 20 GM/30 ML UCUP PO PRN ×2 (09:14→21:18)
[2019-12-10] MEDS: VENLAFAXINE 75 MG PO SCH (09:14)
--- NOTE | 2019-12-10 13:35 | P.PN ---
Subjective Date of Service: 12/10/19 Primary Care Provider: Dr. Barahona Chief Complaint: Fall, pelvic fracture. Subjective: Improving Review of Systems General: Unremarkable Eyes: Unremarkable ENT: Unremarkable Respiratory: Unremarkable Cardiovascular: Unremarkable Gastrointestinal: Unremarkable Genitourinary: Unremarkable Musculoskeletal: As per HPI Integumentary: Unremarkable Neurological: Unremarkable Physical Examination - Vital Signs Temperature: 97.4 F Blood Pressure: 126/68 Pulse: 90 Respirations: 18 Pulse Ox (%): 96 - Physical Exam General: Alert, In no apparent distress, Oriented x3 HEENT: Atraumatic, Normocephalic Neck: Supple Respiratory: Normal air movement Cardiovascular: No edema, Regular rate/rhythm Capillary refill: <2 Seconds Gastrointestinal: Normal bowel sounds, Soft and benign Musculoskeletal: No erythema, No tenderness, No warmth Integumentary: No erythema, No warmth Neurological: Normal speech, Normal tone - Studies Medications List Reviewed: Yes Assessment & Plan Discharge Plan: Home Plan to discharge in: 24 Hours - Code Status/Comfort Care Code Status Assessed: Yes (Patient is full code) Physician Review Additional Text: Impression: Pelvic fractures-inferior/superior pubic rami, right inferior pubic rami, mildly displaced fracture of the right superior pubic rami and right inferior sacral ala 3.1 cm complex cyst to the left adnexa Hypertension Diabetes mellitus type 2 [id number]-iabojfupu Plan: Pelvic fractures-inferior/superior pubic rami, right inferior pubic rami, mildly displaced fracture of the right superior pubic rami and right inferior sacral ala: Continue with physical therapy. Case was discussed with orthopedics. Non operative management is recommended. Continue DVT prophylaxis. Patient did well physical therapy. Anticipate patient can be discharged tomorrow. Patient is requesting assistance in getting into her house upon discharge, will work with long term care social worker to determine if additional assistance can be provided. 3.1 cm complex cyst to the left adnexa: Recommend repeat ultrasound in 3 months to monitor stability. Recommend gynecology evaluation in the future. Hypertension: Continue medication. Will monitor and adjust appropriately. Diabetes mellitus type 2 [id number]-lbjrqlyhr: Continue with Accu-Cheks. Monitor sliding scale. Critical Care: No Time Spent Managing Pts Care (In Minutes): 55
[2019-12-10] MEDS: GABAPENTIN 300 MG CAP PO SCH (21:17)
[2019-12-10] MEDS: AMITRIPTYLINE 25 MG TAB PO SCH (21:17)
[2019-12-10 21:52] VITALS: O2SAT 92
[2019-12-11] MEDS: HYDROCODONE/APAP 7.5/325 MG TAB PO PRN ×2 (00:39→13:24)
[2019-12-11] MEDS: INSULIN -REGULAR HUMAN 50 UNIT/0.5 ML ML SQ SCH ×2 (07:30→11:30)
[2019-12-11] MEDS: AMLODIPINE 10 MG TAB PO SCH (08:16)
[2019-12-11] MEDS: lisinopriL 20 MG TAB PO SCH (08:16)
[2019-12-11] MEDS: METOPROLOL TAR 25 MG TAB PO SCH (08:16)
[2019-12-11] MEDS: DOCUSATE NA 100 MG CAP PO SCH (08:16)
[2019-12-11] MEDS: ENOXAPARIN 40 MG/0.4 ML SQ SCH (08:17)
[2019-12-11] MEDS: VENLAFAXINE 75 MG PO SCH (08:17)
--- NOTE | 2019-12-11 11:53 | P.DS ---
Admission Date: 12/05/19 Discharge Date: 12/11/19 Primary Care Provider: Dr. Barahona Disposition: DC HOME/HOME HEALTH CARE Discharge Condition: GOOD Reason for Admission: Fall, pelvic fracture. Consultations: Xray: Medical Problem List: Procedures: Pelvic CT: FINDINGS: Comminuted mildly to moderately displaced fracture right inferior pubic ramus Mildly displaced fractures right superior pubic ramus Minimally displaced fracture right inferior sacral ala No dislocation 3.1 centimeter complex cystic structure left adnexal IMPRESSION: Comminuted mildly to moderately displaced fracture right inferior pubic ramus Mildly displaced fractures right superior pubic ramus Minimally displaced fracture right inferior sacral ala 3.1 centimeter complex cystic structure left adnexa. It is recommended that patient have a followup pelvic ultrasound in 3 months to assess stability Medical Problem list: Pelvic fractures-inferior/superior pubic rami, right inferior pubic rami, mildly displaced fracture of the right superior pubic rami and right inferior sacral ala 3.1 cm complex cyst to the left adnexa Hypertension Diabetes mellitus type 2 [id number]-tudnvqumf Brief History of Present Illness: 79-year-old female presented to emergency room after a fall. Patient found to have multiple pelvic fractures. Patient was admitted for further evaluation and treatment. Hospital Course: Patient presented with a fall. She was found have pelvic fractures- inferior/superior pubic rami, right inferior pubic rami, mildly displaced fracture of the right superior pubic rami and right inferior sacral ala. She was evaluated by orthopedics. Non operative management was recommended. Patient did well with physical therapy. Patient safe enough to be discharged home. Arrangements for walker, bedside commode and home health with physical therapy have been arranged. Patient will be discharged home. Patient may continue with tramadol 50 mg 3 times a day as needed for pain. Fall precautions in place. Recommend follow up with orthopedics in 2-4 weeks to monitor her progress. On CT scan. Patient also found to have a 3.1 cm cyst to the left at adnexa. It is recommended that she follow up with gynecology to further evaluate. Repeat ultrasound in 3 months is recommended to monitor stability. Patient with hypertension, diabetes and depression with anxiety. At discharge she will continue with her current medication. Recommend follow up with her PCP to further monitor and address. Vital Signs/Physical Exam: Temp Pulse Resp BP Pulse Ox 96.5 F L 78 17 125/61 90 L 12/11/19 08:00 12/11/19 08:16 12/11/19 08:00 12/11/19 08:16 12/11/19 08:00 General: Alert, In no apparent distress, Oriented x3, Cooperative HEENT: Atraumatic Neck: Supple Respiratory: Clear to auscultation bilaterally, Normal air movement Cardiovascular: Normal pulses, Regular rate/rhythm Gastrointestinal: Normal bowel sounds, Soft and benign, Non-distended, No masses, No rebound, No guarding Musculoskeletal: No erythema, No tenderness, No warmth Integumentary: No tenderness/swelling, No erythema, No warmth, No cyanosis Neurological: Normal speech, Normal strength at 5/5 x4 extr, Normal tone, Normal affect Laboratory Data at Discharge: WBC 7.6 K/uL (4.3-10.9) D 12/06/19 05:18 Hgb 11.9 g/dL (12.0-15.0) L 12/06/19 05:18 Hct 35.1 % (36.0-45.0) L 12/06/19 05:18 Plt Count 193 K/uL (152-406) 12/06/19 05:18 PT 11.7 SECONDS (9.5-12.5) 12/05/19 17:23 INR 0.99 12/05/19 17:23 APTT 27.3 SECONDS (24.3-36.9) 12/05/19 17:23 Sodium 138 mmol/L (136-145) 12/10/19 04:17 Potassium 4.4 mmol/L (3.5-5.1) 12/10/19 04:17 BUN 18 mg/dL (7-18) 12/10/19 04:17 Creatinine 0.52 mg/dL (0.55-1.3) L 12/10/19 04:17 Glucose 179 mg/dL (74-106) H 12/10/19 04:17 Magnesium 2.2 mg/dL (1.8-2.4) 12/10/19 04:17 Total Bilirubin 0.8 mg/dL (0.2-1.0) 12/06/19 05:18 AST 23 U/L (15-37) 12/06/19 05:18 ALT 25 U/L (12-78) 12/06/19 05:18 Alkaline Phosphatase 70 U/L (45-117) 12/06/19 05:18 Home Medications: Amitriptyline [Elavil*] 25 mg PO BEDTIME 12/05/19 Amlodipine [Norvasc*] 1 tab PO DAILY 12/05/19 Gabapentin 1 cap PO BEDTIME 12/05/19 Lisinopril [Zestril] 20 mg PO DAILY 12/05/19 Metformin HCl 1 tab PO DAILY 12/05/19 Metoprolol Tartrate 1 tab PO DAILY 12/05/19 Venlafaxine HCl [Venlafaxine HCl ER] 1 tab PO DAILY 12/05/19 Docusate [Colace Cap*] 100 mg PO DAILY #15 cap 12/11/19 traMADol HCL [Ultram*] 50 mg PO TID PRN #15 tab 12/11/19 New Medications: Docusate [Colace Cap*] 100 mg PO DAILY #15 cap traMADol HCL [Ultram*] 50 mg PO TID PRN #15 tab PRN Reason: Pain Patient Discharge Instructions: 1. Recommend follow up with her PCP in 1 week to follow up this hospitalization. 2. Patient presented with a fall. She was found have pelvic fractures-inferior/superior pubic rami, right inferior pubic rami, mildly displaced fracture of the right superior pubic rami and right inferior sacral ala. She was evaluated by orthopedics. Non operative management was recommended. Patient did well with physical therapy. Patient safe enough to be discharged home. Arrangements for walker, bedside commode and home health with physical therapy have been arranged. Patient will be discharged home. Patient may continue with tramadol 50 mg 3 times a day as needed for pain. Fall precautions in place. Recommend follow up with orthopedics in 2-4 weeks to monitor her progress. 3. On CT scan. Patient also found to have a 3.1 cm cyst to the left at adnexa. It is recommended that she follow up with gynecology to further evaluate. Repeat ultrasound in 3 months is recommended to monitor stability. 4. Patient with hypertension, diabetes and depression with anxiety. At discharge she will continue with her current medication. Recommend follow up with her PCP to further monitor and address. Diet: ADA Activity: Fall precautions Time spent managing pt's care (in minutes): 55
[2019-12-11 12:06] VITALS: BP 109/55; TEMP 96.9
== END 2019-12-11 14:14 | disposition home health service (06) | DRG 552 ==
LOC: ER 15:23 → ERHOLD 18:29 → 2ND 21:09
PROVIDERS: ADMIT Family Medicine; ATTEND Family Medicine
DX: S32.19XA Other fracture of sacrum, initial encounter for closed fracture (principal); S32.591A Other specified fracture of right pubis, initial encounter for closed fracture; E11.9 Type 2 diabetes mellitus without complications; N85.8 Other specified noninflammatory disorders of uterus; I10 Essential (primary) hypertension; W01.0XXA Fall on same level from slipping, tripping and stumbling without subsequent striking against object, initial encounter; Z20.828 Contact with and (suspected) exposure to other viral communicable diseases; Z79.84 Long term (current) use of oral hypoglycemic drugs; Z79.899 Other long term (current) drug therapy
CPT/HCPCS: 36415; 72100; 72131; 72170; 72192; 80048; 80053; 81003; 81015; 82947; 83735; 85025; 85610; 85730; 87086; 87088; 93005; 94760; 96374; 97110; 97116; 97161; 97530; 99285; J0696; J1650; J3010; J7030; U0002

== ENCOUNTER → 2023-06-11 | Emergency (ER) | payer OTHER ==
[~2023-06-11] MED LIST: LEVETIRACETAM 500 MG/5 ML VIAL IV ONE; NA CHLORIDE 0.9% 100 ML ONE
[2023-06-11 19:58] LABS: Absolute Lymphocytes (CBC) 1.2 K/uL (0.7-4.9); Hematocrit 32.8 % (36.0-45.0); Lymphocytes % 11.5 % (15.3-44.8); MCV 84.3 fL (80-100); MPV 6.7 fL (7.6-11.3); Platelets 519 thou/uL (152-406)
--- NOTE | 2023-06-11 20:14 | RAD REPORT ---
EXAM DESCRIPTION: CT - [facility] - 06/11/2023 7:57 pm CLINICAL HISTORY: Trauma, head and neck injury. TRAUMA COMPARISON: No comparisons TECHNIQUE: Axial 5 mm thick images of the head were obtained. Axial 2 mm thick images of the cervical spine were obtained with sagittal and coronal reconstruction images generated and reviewed. All CT scans are performed using dose optimization technique as appropriate and may include automated exposure control or mA/KV adjustment according to patient size. FINDINGS: CT HEAD WITHOUT CONTRAST: There is a 7 mm acute subdural hematoma along the right frontal convexity. This extends inferiorly al javid the right temporal region measuring to 5 mm in thickness.Small amount blood subarachnoid blood al so noted along the right quadrigeminal plate cistern.2 mm right to left midline shift is present. The paranasal sinuses and mastoids are clear.The calvarium is intact. CT CERVICAL SPINE WITHOUT CONTRAST: No fracture or subluxation.Mild lower cervical degenerative changes.No prevertebral soft tissues swel ling is identified. IMPRESSION: 7 mm thick acute subdural hematoma along the right frontal convexity with 2 mm right to left midline shift.Small volume of subarachnoid hemorrhage also seen quadrilateral plate cistern. No acute cervical spine finding.
[2023-06-11 20:16] LABS: Bilirubin Direct 0.1 mg/dL (0-0.2); Bilirubin Indirect, Calculated 0.2 mg/dL (0.2-0.8); Bilirubin Total 0.3 mg/dL (0.2-1.0); Potassium 4.6 mEq/L (3.5-5.1); Protein, Total 7.3 g/dL (6.4-8.2)
[2023-06-11 20:17] LABS: Magnesium 1.7 mg/dL (1.6-2.4)
--- NOTE | 2023-06-11 20:24 | RAD REPORT ---
EXAM DESCRIPTION: CT - CTFB CLINICAL HISTORY: TRAUMA Trauma, facial pain COMPARISON: No comparisons TECHNIQUE: Axial 2 mm thick images of the face were obtained with sagittal and coronal reconstructio n images. All CT scans are performed using dose optimization technique as appropriate and may include automated exposure control or mA/KV adjustment according to patient size. FINDINGS: No acute facial bone fracture is seen.The mandible is intact. The globes and orbital contents are grossly unremarkable.The paranasal sinuses and mastoids are clear . IMPRESSION: Negative for facial bone fracture.
[2023-06-11 20:35] LABS: Specific Gravity 1.018 (1.005-1.030); Urine Bacteria >50 /HPF (<20); Urine Bilirubin NEGATIVE (Negative); Urine Blood Negative (Negative); Urine Clarity Extremely Turbid (Clear); Urine Color Yellow (Yellow); Urine Crystals Unidentified Few /HPF (None Seen); Urine Glucose NEGATIVE (Negative); Urine Mucus Slight /HPF (None Seen); Urine Protein TRACE (Negative); Urine RBC <5 /HPF (None Seen); Urine Urobilinogen Normal (Normal); Urine pH 6.5 (5.0-7.0)
--- NOTE | 2023-06-11 20:47 | EDPHYS ---
Physician Documentation [facility] Name: Denisse Cook Age: 83 yrs Sex: Female : 1940 Arrival Date: 06/11/2023 Time: 18:57 Bed 13 Private MD: ED Physician Elgin Hamilton HPI: 06/11 21:00 This 83 yrs old Female presents to ER via EMS with complaints of fall. kb 21:00 Patient is a 83-year-old female who had an unwitnessed fall at home between 430 and kb 5:30 PM. Unknown LOC. Patient reports slight headache, denies any other pain.. Historical: - Allergies: 19:30 No Known Allergies; nw1 - PMHx: 19:30 Diabetes - NIDDM; Hypertension; nw1 - Immunization history:: Adult Immunizations up to date. - Social history:: Smoking status: Patient denies any tobacco usage or history of. ROS: 20:27 Constitutional: Negative for fever, chills, and weight loss, kb 20:27 Cardiovascular: Positive for edema, 20:27 Skin: Positive for laceration(s), of the forehead, 20:27 All other systems are negative, 20:27 Neuro: Positive for headache, kb Exam: 20:29 Constitutional: This is a well developed, well nourished patient who is awake, alert, kb and in no acute distress. Eyes: Pupils equal round and reactive to light, extra-ocular motions intact. Lids and lashes normal. Conjunctiva and sclera are non-icteric and not injected. Cornea within normal limits. Periorbital areas with no swelling, redness, or edema. ENT: Moist Mucous membranes Cardiovascular: Regular rate Respiratory: Respirations even and unlabored. No increased work of breathing. Talking in full sentences Skin: Warm, dry with normal turgor. Normal color. MS/ Extremity: Pulses equal, no cyanosis. Neurovascular intact. Full, normal range of motion. 20:29 Cardiovascular: Edema: pedal edema, that is mild, that is moderate, 20:29 Abdomen/GI: Inspection: edema, 20:34 Neuro: Orientation: is normal, to person, place, time \T\ situation. Mentation: is kb normal, able to follow commands, Motor: moves all fours, Vital Signs: 19:25 BP 137 / 76; Pulse 81; Resp 18; Temp 98.4(O); Pulse Ox 100% on R/A; Weight 73.03 kg; oe Height 5 ft. 3 in. ; Pain 0/10; 19:25 BP 137 / 76; Pulse 81; Resp 18; Temp 98.4(O); Pulse Ox 100% on R/A; Weight 33.13 kg; nw1 Pain 7/10; 20:56 Weight 72.2 kg (M); lg3 19:25 Body Mass Index 28.52 (72.20 kg, 160.02 cm) oe 19:25 Pain Scale: Adult oe 19:25 Pain Scale: Adult nw1 [place] Coma Score: 19:35 Eye Response: spontaneous(4). Motor Response: obeys commands(6). Verbal Response: nw1 confused(4). Total: 14. MDM: 19:26 Patient medically screened. kb 20:34 Differential diagnosis: closed head injury, contusion, fracture, laceration. Data kb reviewed: vital signs, nurses notes. Consideration of Admission/Observation Escalation of care including admission/observation considered. Patient will be transferred to [place] for neurosurgery post trauma. Historians other than the Patient: EMS: [place], EMS. 20:44 Management of patient was discussed with the following: Dr Miller, Neurosurgery at [facility] accepts pt for transfer to ER under Dr Rothman. Counseling: I had a detailed discussion with the patient and/or guardian regarding the historical points, exam findings, and any diagnostic results supporting the discharge/admit diagnosis, lab results, radiology results, the need to transfer to another facility, for higher level of care, [facility] does not immediately have the required specialist. 06/11 19:28 Order name: Basic Metabolic Panel; Complete Time: 20:26 kb 06/11 19:28 Order name: CBC with Diff; Complete Time: 20:02 kb 06/11 19:28 Order name: LFT's; Complete Time: 20:26 kb 06/11 19:28 Order name: Magnesium; Complete Time: 20:26 kb 06/11 19:28 Order name: NT PRO-BNP; Complete Time: 20:26 kb 06/11 19:28 Order name: Troponin HS; Complete Time: 20:26 kb 06/11 19:29 Order name: Urinalysis w/ reflexes; Complete Time: 20:40 kb 06/11 20:39 Order name: Urine Culture EDNV 06/11 19:28 Order name: XRAY Chest (1 view); Complete Time: 20:55 kb 06/11 19:28 Order name: CT Head C Spine; Complete Time: 20:15 kb 06/11 19:28 Order name: CT Facial Bones W/O Con; Complete Time: 20:26 kb 06/11 19:28 Order name: EKG; Complete Time: 19:29 kb 06/11 19:28 Order name: Cardiac monitoring 06/11 19:28 Order name: EKG - Nurse/Tech 06/11 19:28 Order name: IV Saline Lock 06/11 19:28 Order name: Labs collected and sent 06/11 19:28 Order name: O2 Per Protocol 06/11 19:28 Order name: O2 Sat Monitoring 06/11 19:29 Order name: Straight Cath; Complete Time: 20:56 kb 06/11 20:29 Order name: Seizure Precautions; Complete Time: 21:48 kb Administered Medications: 21:15 Drug: Keppra IV 1000 mg IV at calculated rate once Route: IV; Rate: calculated rate; nw1 Site: left forearm; Point of Care Testing: Blood Glucose: 19:30 Blood Glucose: 140 mg/dL; nw1 19:30 reported by EMS nw1 Ranges: Critical Glucose Levels:Adult <50 mg/dl or >400 mg/dl <40 mg/dl or >180 mg/dl Disposition Summary: 06/11/23 20:46 Transfer Ordered Notes: Transfer Location: [facility] kb Reason: Higher level of care kb Condition: Stable kb Problem: new kb Symptoms: are unchanged kb Accepting Physician: Dr Rothman(06/11/23 21:49) nw1 Diagnosis - Traumatic subdural hemorrhage kb - Traumatic subarachnoid hemorrhage kb - UTI/ Urinary tract infection, site not specified kb Forms: - Medication Reconciliation Form kb - SBAR form kb Critical care time excluding procedures: 22:16 Critical care time: Bedside Care: 10 minutes, Consultation: 10 minutes, Family kb Intervention: 10 minutes. Total time: 30 minutes Signatures: Dispatcher [employer] EDMS Shala Rogers, Mamie Conti, RN RN nw1 Corrections: (The following items were deleted from the chart) 20:34 20:29 Constitutional: This is a well developed, well nourished patient who is awake, kb alert, and in no acute distress. Eyes: Pupils equal round and reactive to light, extra-ocular motions intact. Lids and lashes normal. Conjunctiva and sclera are non-icteric and not injected. Cornea within normal limits. Periorbital areas with no swelling, redness, or edema. ENT: Moist Mucous membranes Cardiovascular: Regular rate Respiratory: Respirations even and unlabored. No increased work of breathing. Talking in full sentences Skin: Warm, dry with normal turgor. Normal color. MS/ Extremity: Pulses equal, no cyanosis. Neurovascular intact. Full, normal range of motion. kb 21:01 20:46 Dr Stephan ordonez kb 21:49 21:01 Dr Rothman kb nw1
--- NOTE | 2023-06-11 20:47 | ER ---
Nurse's Notes [facility] Name: Denisse Cook Age: 83 yrs Sex: Female : 1940 Arrival Date: 06/11/2023 Time: 18:57 Bed 13 Private MD: Diagnosis: Traumatic subdural hemorrhage;Traumatic subarachnoid hemorrhage;UTI/ Urinary tract infection, site not specified Presentation: 06/11 19:25 Chief complaint: EMS states: Ground level fall. - blood thinners unknown LOC. Unknown nw1 downtime, but last seen alert and walking was 30 min - 1 hour. Seen and [facility] for [facility] and [facility] Coronavirus screen: Client denies travel out of the [place] in the last 14 days. At this time, the client does not indicate any symptoms associated with coronavirus-19. Ebola Screen: Patient negative for fever greater than or equal to 101.5 degrees Fahrenheit, and additional compatible Ebola Virus Disease symptoms Patient denies exposure to infectious person. Patient denies travel to an Ebola-affected area in the 21 days before illness onset. No symptoms or risks identified at this time. Initial Sepsis Screen: Does the patient meet any 2 criteria?. Initial Sepsis Screen: Does the patient have a suspected source of infection? Yes: Dysuria/Frequency/Urgency/UTI No. Patient's initial sepsis screen is negative. Risk Assessment: Do you want to hurt yourself or someone else? Patient reports no desire to harm self or others. Onset of symptoms is unknown. 19:25 Method Of Arrival: EMS: [facility] nw1 19:25 Acuity: RYAN 3 nw1 Triage Assessment: 19:30 General: Appears uncomfortable, well groomed, Behavior is calm, cooperative, nw1 appropriate for age. Pain: Complains of pain in forehead. Neuro: Reports daughter reports decline in mental status x 3 weeks. . Cardiovascular: Reports None. Respiratory: No deficits noted. GI: Parent/caregiver reports the patient having enlarged abdomen. : Parent/caregiver report the patient having [facility] paperwork [facility]. Derm: Skin is fragile, has skin tears on noted on frontal of head Skin is pale. Musculoskeletal: Parent/caregiver report the patient having weakness in generalized frequent falls from patient x 3 weeks. Historical: - Allergies: 19:30 No Known Allergies; nw1 - PMHx: 19:30 Diabetes - NIDDM; Hypertension; nw1 - Immunization history:: Adult Immunizations up to date. - Social history:: Smoking status: Patient denies any tobacco usage or history of. Screenin:35 [facility] ED Fall Risk Assessment (Adult) History of falling in the last 3 months, nw1 including since admission Yes- fall prone (multiple falls) (3 pts) Confusion or Disorientation Yes (5 pts) Intoxicated or Sedated No (0 pts) Impaired Gait Yes (1 pt) Mobility Assist Device Used Yes (1 pt) Altered Elimination Yes (1 pt) Score/Fall Risk Level 3 or more points = High Risk Oriented to surroundings, Maintained a safe environment, Provided non-skid footwear, Hourly rounding (assess needs \T\ fall precautionary measures) done, Used ambulatory aids as needed (educated on \T\ assisted with), Apply high fall risk patient identification: yellow non skid footwear/ fall signage. Abuse screen: Denies threats or abuse. Denies injuries from another. Nutritional screening: No deficits noted. Tuberculosis screening: No symptoms or risk factors identified. Assessment: 19:35 Reassessment: See triage assessment. nw1 Vital Signs: 19:25 BP 137 / 76; Pulse 81; Resp 18; Temp 98.4(O); Pulse Ox 100% on R/A; Weight 73.03 kg; oe Height 5 ft. 3 in. ; Pain 0/10; 19:25 BP 137 / 76; Pulse 81; Resp 18; Temp 98.4(O); Pulse Ox 100% on R/A; Weight 33.13 kg; nw1 Pain 7/10; 20:56 Weight 72.2 kg (M); lg3 19:25 Body Mass Index 28.52 (72.20 kg, 160.02 cm) oe 19:25 Pain Scale: Adult oe 19:25 Pain Scale: Adult nw1 [place] Coma Score: 19:35 Eye Response: spontaneous(4). Motor Response: obeys commands(6). Verbal Response: nw1 confused(4). Total: 14. ED Course: 19:17 Patient arrived in ED. jj6 19:25 Mamie Marcus RN is Primary Nurse. nw1 19:26 [facility]ala Rogers [facility]C [facility]. kb 19:26 Elgin Hamilton MD is Attending Physician. kb 19:30 Triage completed. nw1 19:30 Arm band placed on left wrist. nw1 19:35 Patient has correct armband on for positive identification. Fall risk band placed. nw1 Placed in gown. Bed in low position. Call light in reach. Side rails up X2. Adult w/ patient. Provided Education on: POC. Client placed on continuous cardiac and pulse oximetry monitoring. NIBP monitoring applied. threat monitoring analyst on. Pulse ox on. NIBP on. Door closed. Noise minimized. Warm blanket given. 19:35 No provider procedures requiring assistance completed. Maintain EMS IV. Dressing nw1 intact. Good blood return noted. Site clean \T\ dry. Gauge \T\ site: 18 G RAC. IV is patent, is intact, with fluids infusing freely, with fluids not infusing freely, Flushed right antecubital. 19:54 CT Head C Spine In Process Unspecified. EDMS 19:54 CT Facial Bones W/O Con In Process Unspecified. EDMS 20:37 Initiated transfer to [facility], spoke to Brittney Rowe. wm 20:43 Pt accepted for transfer to [facility] ER by Felicia Strauss per Brittney Rowe. wm 20:43 [facility] ETA \T\ 2115. wm 20:48 XRAY Chest (1 view) In Process Unspecified. EDMS Administered Medications: 21:15 Drug: Keppra IV 1000 mg IV at calculated rate once Route: IV; Rate: calculated rate; nw1 Site: left forearm; Medication: 19:35 VIS not applicable for this client. nw1 Point of Care Testing: Blood Glucose: 19:30 Blood Glucose: 140 mg/dL; nw1 19:30 reported by EMS nw1 Ranges: Outcome: 20:46 ER care complete, transfer ordered by . kb 21:19 [address] by helicopter to [facility], nw1 21:22 Condition: stable nw1 21:22 Instructed on the need for transfer, 21:49 Patient left the ED. nw1 Signatures: Dispatcher [employer] EDMS Shala Rogers FNP-C FNP-Matthew Rooney Lacie, RN RN 3 Carole Grewal Esthela Frances [id number] Mamie Marcus, RN RN nw1
--- NOTE | 2023-06-11 20:53 | RAD REPORT ---
EXAM DESCRIPTION: RAD - Chest Single View - 06/11/2023 8:47 pm CLINICAL HISTORY: SWELLING Chest pain. COMPARISON: Head C Spine Mpr Wo Con dated 06/11/2023 FINDINGS: Portable technique limits examination quality. The lungs are grossly clear. The heart is mildly enlarged. No displaced fractures. IMPRESSION: No acute intrathoracic process suspected.
[2023-06-11 23:26] VITALS: BP 137/76; TEMP 98.4; O2SAT 100
== END ==
LOC: ER 18:57
DX: S06.5XAA Traumatic subdural hemorrhage with loss of consciousness status unknown, initial encounter (principal); S06.6XAA Traumatic subarachnoid hemorrhage with loss of consciousness status unknown, initial encounter; N39.0 Urinary tract infection, site not specified; E11.9 Type 2 diabetes mellitus without complications; I10 Essential (primary) hypertension
CPT/HCPCS: 87088; 85025; 81001; 87086; 80048; 36415; 83735; 80076; 84484; 83880; 70450; 72125; 70486; 76377; 71045; 96374; 99285; J1953; 87077; 87186